=== PATIENT | male | born 1985 | race African-American/Black ===

== ENCOUNTER 2021-10-03 20:49 | Emergency (ER) | payer SELFPAY ==
[~2021-10-03] VITALS: Ht 170.2 cm; Wt 74.8 kg
--- NOTE | 2021-10-04 13:57 | EKG ---
[facility] [address] [facility] [place], [place] [address] Signed Normal sinus rhythm Normal ECG No previous ECGs available Confirmed by MAKENNA SULLIVAN MD ([id number] on 10/04/2021 1:56:50 PM Electronically Signed By: MAKENNA SULLIVAN MD 10/04/21 1357 PATIENT NAME: CHRIS COLLIER JR Electrocardiogram DATE OF : 81 PHYSICIAN: MAKENNA SULLIVAN MD REPORT #: [id number] REPORT IS CONFIDENTIAL AND NOT TO BE RELEASED WITHOUT AUTHORIZATION
== END 2021-10-03 23:55 | disposition home or self-care (01) ==
LOC: ED 20:49 → EDBD 20:50 → ED 23:55
DX: S61.216A Laceration without foreign body of right little finger without damage to nail, initial encounter (principal); S00.81XA Abrasion of other part of head, initial encounter; Z02.89 Encounter for other administrative examinations; X58.XXXA Exposure to other specified factors, initial encounter
CPT/HCPCS: 36415; 70450; 80053; 81001; 85025; 90471; 90714; 93005; 93010; 99284-25